=== PATIENT | female | born 2000 | race Caucasian/White ===

== ENCOUNTER 2020-10-29 13:13 | Emergency (ER) | payer MEDICAID ==
[~2020-10-29] VITALS: Ht 157.5 cm; Wt 99.0 kg
[2020-10-29 13:42] LABS: CLARITY URINE CLOUDY (CLEAR); COLOR URINE YELLOW (YELLOW); KETONES URINE NEGATIVE (NEGATIVE); LEUKOCYTE ESTERASE URINE 2+ (NEGATIVE); NITRITE URINE NEGATIVE (NEGATIVE); OCCULT BLOOD URINE 2+ (NEGATIVE); PH URINE 8.5 (4.5-8.0); PROTEIN URINE TRACE (NEGATIVE); SPECIFIC GRAVITY URINE 1.026 (1.005-1.030); UROBILINOGEN URINE 0.2 E.U./dL (0.2-1.0)
[2020-10-29] MEDS ORDERED: SODIUM CHLORIDE 0.9% 1,000 ML IV ONE (13:45)
[2020-10-29 14:08] LABS: BASOPHILS % 0.2 % (0.0-2.0); EOSINOPHILS % 0.9 % (0.0-5.0); HEMATOCRIT. 38.5 % (36.0-48.0); HEMOGLOBIN. 13.1 g/dL (12.0-16.0); LYMPHOCYTES % 27.5 % (20.0-50.0); MEAN CORPUSCULAR HEMOGLOBIN 26.7 pg (28.0-32.0); MEAN CORPUSCULAR VOLUME 78.5 fL (81.0-99.0); MEAN PLATELET VOLUME 8.2 fl (7.4-10.4); MONOCYTES % 7.6 % (2.0-8.0); NEUTROPHILS % 63.8 % (40.0-76.0); PLATELET 349 x1000/uL (130-400); RED CELL DISTRIBUTION WIDTH 14.1 % (11.6-14.6)
[2020-10-29 14:15] LABS: CHLORIDE 107 mEq/L (98-107)
[2020-10-29 14:20] LABS: PROTHROMBIN TIME 11.2 sec (9.6-11.0)
[2020-10-29 14:25] LABS: HCG SCREEN NEGATIVE
[2020-10-29] MEDS ORDERED: IOHEXOL-300 100 ML BOTTLE ONE (16:09)
[2020-10-29] MEDS ORDERED: SULF1TAB48 MT ×2 (16:28→16:29)
[2020-10-29 16:53] VITALS: BP 136/82
== END 2020-10-29 17:06 | disposition home or self-care (01) ==
LOC: ER 14:11
DX: N12 Tubulo-interstitial nephritis, not specified as acute or chronic (principal); N39.0 Urinary tract infection, site not specified; R10.30 Lower abdominal pain, unspecified; N93.9 Abnormal uterine and vaginal bleeding, unspecified; Z88.2 Allergy status to sulfonamides
CPT/HCPCS: 36415; 74177; 80053; 81003; 81025; 83690; 84703; 85025; 85610; 87086; 96360; 99285; J7030; Q9967

== ENCOUNTER 2021-02-05 19:15 | Emergency (ER) | payer MEDICAID, OTHER ==
[~2021-02-05] VITALS: Ht 157.5 cm; Wt 100.0 kg
[~2021-02-05 19:15] MED LIST: SULF1TAB48 MT
[2021-02-05 20:41] LABS: CLARITY URINE CLOUDY (CLEAR); COLOR URINE YELLOW (YELLOW); KETONES URINE NEGATIVE (NEGATIVE); LEUKOCYTE ESTERASE URINE TRACE (NEGATIVE); NITRITE URINE NEGATIVE (NEGATIVE); OCCULT BLOOD URINE TRACE (NEGATIVE); PROTEIN URINE TRACE (NEGATIVE); SPECIFIC GRAVITY URINE 1.035 (1.005-1.030); UROBILINOGEN URINE 0.2 E.U./dL (0.2-1.0)
[2021-02-05] MEDS ORDERED: ONDANSETRON 4MG ODT PO ONE (21:45)
[2021-02-05] MEDS ORDERED: IBUPROFEN 600MG TABLET PO ONE (21:45)
[2021-02-05 23:22] LABS: BASOPHILS % 0.3 % (0.0-2.0); EOSINOPHILS % 0.5 % (0.0-5.0); HEMATOCRIT. 40.1 % (36.0-48.0); HEMOGLOBIN. 13.7 g/dL (12.0-16.0); LYMPHOCYTES % 29.6 % (20.0-50.0); MEAN CORPUSCULAR HEMOGLOBIN 26.9 pg (28.0-32.0); MEAN CORPUSCULAR VOLUME 78.6 fL (81.0-99.0); MONOCYTES % 6.6 % (2.0-8.0); PLATELET 373 x1000/uL (130-400); RED CELL DISTRIBUTION WIDTH 14.1 % (11.6-14.6)
[2021-02-05 23:27] LABS: CHLORIDE 108 mEq/L (98-107)
[2021-02-05] MEDS ORDERED: CEFTRIAXONE 2 G PREMIX 50 ML IV NR (23:45)
[2021-02-05] MEDS ORDERED: SODIUM CHLORIDE 0.9% 1,000 ML IV ONE ×2 (23:45)
[2021-02-06] MEDS ORDERED: SULF1TAB48 MT (01:38)
[2021-02-06 01:39] VITALS: BP 107/62
[2021-02-06] MEDS ORDERED: IBUP-2029 MT (01:39)
[2021-02-06] MEDS ORDERED: ONDA4TAB5 MT (01:39)
== END 2021-02-06 01:56 | disposition home or self-care (01) ==
LOC: ER 19:15
DX: N10 Acute pyelonephritis (principal); J45.909 Unspecified asthma, uncomplicated
CPT/HCPCS: 36415; 76770; 80053; 81003; 81025; 85025; 96365; 99284; J0696; Q0162

== ENCOUNTER 2022-01-05 00:09 | Emergency (ER) | payer OTHER ==
[~2022-01-05] VITALS: Ht 160 cm; Wt 105.0 kg
[~2022-01-05 00:09] MED LIST changes: +IBUP-2029 MT; +ONDA4TAB5 MT
[2022-01-05 00:15] VITALS: BP 138/65
[2022-01-05] MEDS ORDERED: DOXY100C5 MT (14:24)
[2022-01-05] MEDS ORDERED: CEPH500C2 MT (14:24)
== END 2022-01-05 01:43 | disposition left against medical advice (07) ==
LOC: ER 00:09
DX: Z53.21 Procedure and treatment not carried out due to patient leaving prior to being seen by health care provider (principal)

== ENCOUNTER 2022-01-05 11:09 | Emergency (ER) | payer OTHER ==
[~2022-01-05] VITALS: Ht 157.5 cm; Wt 105.0 kg
[2022-01-05 11:39] VITALS: BP 123/77
[2022-01-05] MEDS ORDERED: LIDOCAINE HCL 1% 20ML VIAL (Pyxis) INJ INFIL ONE (12:45)
[2022-01-05] MEDS ORDERED: MORPHINE SULFATE 10 MG/ML CPJ IM ONE (13:45)
[2022-01-05] MEDS ORDERED: DOXY100C5 MT (14:24)
[2022-01-05] MEDS ORDERED: CEPH500C2 MT (14:24)
[2022-01-05] MEDS ORDERED: DOXYCYCLINE HYCLATE 100MG CAPSULE PO ONE (14:30)
[2022-01-05] MEDS ORDERED: CEPHALEXIN 250MG CAPSULE PO ONE (14:30)
== END 2022-01-05 14:44 | disposition home or self-care (01) ==
LOC: ER 11:09
DX: S00.451A Superficial foreign body of right ear, initial encounter (principal); H60.11 Cellulitis of right external ear; W45.8XXA Other foreign body or object entering through skin, initial encounter; Y93.89 Activity, other specified; Y92.018 Other place in single-family (private) house as the place of occurrence of the external cause
CPT/HCPCS: 10060; 81025; 96372; 99283; J2270; J3490

== ENCOUNTER 2024-02-29 18:56 | Emergency (ER) | payer MEDICAID ==
[~2024-02-29] VITALS: Ht 157.5 cm; Wt 120.0 kg
[~2024-02-29 18:56] MED LIST changes: +CEPH500C2 MT; +DOXY100C5 MT
[2024-02-29 18:58] VITALS: O2SAT 99
[2024-02-29 20:02] LABS: BASOPHILS % 0.3 % (0.0-2.0); DIFFERENTIAL COMMENT 0; EOSINOPHILS % 0.9 % (0.0-5.0); HEMATOCRIT. 36.2 % (36.0-48.0); HEMOGLOBIN. 11.9 g/dL (12.0-16.0); LYMPHOCYTES % 34.7 % (20.0-50.0); MEAN CORPUSCULAR HEMOGLOBIN 26.1 pg (28.0-32.0); MEAN CORPUSCULAR HGB CONC 32.9 g/dL (31.0-37.0); MEAN CORPUSCULAR VOLUME 79.3 fL (81.0-99.0); MEAN PLATELET VOLUME 7.7 fl (7.4-10.4); MONOCYTES % 6.8 % (2.0-8.0); NEUTROPHILS % 57.3 % (40.0-76.0); PLATELET 400 x1000/uL (130-400); RED BLOOD CELL COUNT 4.57 mill/uL (4.2-5.4); RED CELL DISTRIBUTION WIDTH 14.8 % (11.6-14.6); WHITE BLOOD COUNT 11.4 x1000/uL (4.5-11.0)
[2024-02-29 20:08] LABS: CHLORIDE 107 mEq/L (98-107); POTASSIUM 4.2 mEq/L (3.5-5.1); SODIUM 140 mEq/L (136-145)
[2024-02-29 20:09] LABS: CARBON DIOXIDE 26 mEq/L (21-32)
[2024-02-29 20:14] LABS: CREATININE 0.8 mg/dL (0.6-1.0); GLUCOSE 93 mg/dL (70-105); UREA NITROGEN BLOOD 11 mg/dL (9-23)
[2024-02-29 20:26] LABS: HCG SCREEN NEGATIVE
[2024-02-29] MEDS ORDERED: IBUP-2029 MT (21:15)
[2024-02-29 22:28] VITALS: BP 138/84; PULSE 78; RESP 20; TEMP 36.83628; O2SAT 100
== END 2024-02-29 22:30 | disposition home or self-care (01) ==
LOC: ER 18:56
DX: D25.9 Leiomyoma of uterus, unspecified (principal); D64.9 Anemia, unspecified; Z79.899 Other long term (current) drug therapy
CPT/HCPCS: 36415; 76830; 76856; 80048; 84703; 85025; 86850; 86900; 99284